=== PATIENT | female | born 1985 ===

== ENCOUNTER 2018-01-27 13:22 | Emergency (ER) | payer OTHER ==
[2018-01-27 14:12] LABS: HCG,QUALITATIVE URINE POSITIVE (NEGATIVE)
[2018-01-27 14:14] LABS: SQUAMOUS EPITHIAL 4 /hpf (0-5); URINE BILIRUBIN NEGATIVE (NEGATIVE); URINE BLOOD NEGATIVE (NEGATIVE); URINE CLARITY Clear (Clear); URINE COLOR Yellow (YELLOW); URINE GLUCOSE (UA) NORMAL (Normal); URINE LEUKOCYTE ESTERASE NEG Leu/uL (Negative); URINE PROTEIN NEGATIVE (NEGATIVE); URINE UROBILINOGEN NORMAL mg/dL (0.2-1.0)
--- NOTE | 2018-01-27 14:30 | C.PDOC ---
History Of Present Illness 32 y/o female, , presents to the ER complaining of lower abdominal cramping which has been present for the past 3 days. Patient states that her LMP was at the "end of October." Patient reports that she took a home test which was positive. Denies having fever, vaginal bleeding and vaginal discharge. Of note, patient does not want any medications for the pain. Time Seen by Provider: 01/27/18 13:52 Chief Complaint (Nursing): Abdominal Pain History Per: Patient History/Exam Limitations: no limitations Onset/Duration Of Symptoms: Days Current Symptoms Are (Timing): Still Present Severity: Moderate Past Medical History Reviewed: Historical Data, Nursing Documentation, Vital Signs Vital Signs: Last Vital Signs Temp 98.8 F 01/27/18 16:43 Pulse 68 01/27/18 16:43 Resp 18 01/27/18 16:43 BP 116/78 01/27/18 16:43 Pulse Ox 100 01/27/18 20:02 - Medical History PMH: No Chronic Diseases Surgical History: No Surg Hx Family History: States: No Known Family Hx - Social History Hx Alcohol Use: No Hx Substance Use: No - Immunization History Hx Tetanus Toxoid Vaccination: No Hx Influenza Vaccination: No Hx Pneumococcal Vaccination: No Review Of Systems Except As Marked, All Systems Reviewed And Found Negative. Constitutional: Negative for: Fever, Chills Gastrointestinal: Positive for: Abdominal Pain (lower abdominal cramping) Genitourinary: Negative for: Vaginal Discharge, Vaginal Bleeding Physical Exam - Physical Exam Appears: Non-toxic, No Acute Distress Skin: Normal Color, Warm, Dry Head: Atraumatic, Normacephalic Eye(s): bilateral: Normal Inspection Nose: Normal Oral Mucosa: Moist Neck: Supple Chest: Symmetrical Cardiovascular: Rhythm Regular Respiratory: Normal Breath Sounds, No Rales, No Rhonchi, No Wheezing Gastrointestinal/Abdominal: Normal Exam, Soft, No Tenderness Neurological/Psych: Oriented x3, Normal Speech ED Course And Treatment - Laboratory Results Result Diagrams: 01/27/18 14:33 01/27/18 14:33 O2 Sat by Pulse Oximetry: 100 (RA) Pulse Ox Interpretation: Normal Medical Decision Making Medical Decision Making: Plan: --Labs --UA --HCG, Qual. 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 requests outpt fu with obgyn. pt advised strict return precatuions instructed about possiblity of early preg vs miscarriage vs ectopic. Disposition - Disposition Referrals: [facility] [Outside] [facility] [Outside] [facility] [Outside] Juanita Guerrero MD [Staff Provider] - Disposition: HOME/ ROUTINE Disposition Time: 08:00 Condition: STABLE Additional Instructions: please follow up with obgyn. return to er with any worsening symptoms or concerns. please discuss your results with an obgyn in the next 1- 2 days. Instructions: Threatened Miscarriage Forms: [employer] (American) - Clinical Impression Clinical Impression: Threatened miscarriage - Scribe Statement The provider has reviewed the documentation as recorded by the Nataliiaibgeorgia Escobedo Provider Attestation: All medical record entries made by the Nataliiaibe were at my direction and personally dictated by me. I have reviewed the chart and agree that the record accurately reflects my personal performance of the history, physical exam, medical decision making, and the department course for this patient. I have also personally directed, reviewed, and agree with the discharge instructions and disposition.
[2018-01-27 14:39] LABS: BASO # 0.1 K/uL (0.0-0.2); BASO % 0.6 % (0.0-2.0); EOS # 0.1 K/uL (0.0-0.7); EOS % 0.7 % (0.0-4.0); HEMOGLOBIN 12.8 g/dL (11.0-16.0); LYMPH # 2.3 K/uL (1.0-4.3); LYMPH % 22.8 % (20.0-40.0); MEAN CELL VOLUME 80.8 fL (81.0-99.0); MEAN CORPUSCULAR HEMOGLOBIN 27.3 pg (27.0-31.0); MEAN CORPUSCULAR HGB CONC 33.8 g/dL (33.0-37.0); MEAN PLATELET VOLUME 7.7 fL (7.2-11.7); MONO # 0.5 K/uL (0.0-0.8); MONO % 5.3 % (0.0-10.0); NEUT # 7.2 K/uL (1.8-7.0); NEUT % 70.6 % (50.0-75.0); RBC 4.69 Mil/uL (3.80-5.20); RED CELL DISTRIBUTION WIDTH 13.6 % (11.5-14.5); WHITE BLOOD COUNT 10.2 K/uL (4.8-10.8)
[2018-01-27 14:49] LABS: INR 1.2; PROTHROMBIN TIME 12.6 SECONDS (9.7-12.2)
[2018-01-27 14:51] LABS: ALB/GLOB RATIO 1.1 (1.0-2.1); ALBUMIN 4.4 g/dL (3.5-5.0); ALT/SGPT 20 U/L (9-52); AST/SGOT 26 U/L (14-36); BLOOD UREA NITROGEN 9 mg/dL (7-17); CALCIUM 9.2 mg/dl (8.6-10.4); GFR AFRICAN-AMERICAN > 60; GFR NON-AFRICAN AMERICAN > 60
--- NOTE | 2018-01-27 16:24 | US ---
HISTORY: abd pain and COMPARISON: None available. TECHNIQUE: Transabdominal and transvaginal pelvic ultrasound was performed with longitudinal and transverse images submitted for interpretation. FINDINGS: UTERUS: Measures 8.0 x 5.3 x 5.0 cm. Uterus appears anteverted without focal myometrial mass appreciable. ENDOMETRIUM: Measures 27.0 mm in diameter. Abnormally thickened but homogeneous without intrauterine appreciable. The pattern may be compatible with retained products of conception in failed gestation. Trace fluid is seen the upper endocervical canal CERVIX: No cervical mass identified. RIGHT OVARY: Measures 3.2 x 2.2 x 2.5 cm. A corpus luteum cyst is suggested measuring 2.1 x 1.9 x 1.8 cm Normal flow. LEFT OVARY: Measures 3.3 x 1.8 x 2.5 cm. No solid mass. Normal flow. FREE FLUID: No significant free fluid noted. OTHER FINDINGS: None. IMPRESSION: No intrauterine gestation is identified however there is a prominent endometrium measuring 27 mm thickness suspicious for potential failure of gestation with retained products of conception. Delete Viable nonvisualized IUP not completely exclude occluded. Follow-up serial beta HCG analysis is advised as well as ultrasonography in 1 week. Right corpus luteum cyst suggested. Left adnexal compartment unremarkable.
[2018-01-27 16:44] VITALS: BP 116/78; PULSE 68; RESP 18; TEMP 98.8
[2018-01-27 20:02] VITALS: O2SAT 100
== END 2018-01-27 16:55 | disposition home or self-care (01) ==
LOC: C.ER 13:22
DX: O20.0 Threatened abortion (principal); Z3A.00 Weeks of gestation of pregnancy not specified